=== PATIENT | female | born 1980 | race Caucasian/White ===

== ENCOUNTER 2017-11-22 15:23 | Emergency (ER) | payer BC ==
[2017-11-22] MEDS ORDERED: Lorazepam 2 MG/ML VIAL ONE ×2 (15:55→16:11)
[2017-11-22] MEDS ORDERED: diphenhydrAMINE 25 MG CAP ONE (15:55)
[2017-11-22 16:08] LABS: #Basophils 0.1 thou/uL (0.0-0.2); #Eosinphils 0.1 thou/uL (0.0-0.7); #Lymphocytes 2.2 thou/uL (1.20-3.40); #Monocytes 0.4 thou/uL (0.11-0.59); #Neutrophils 3.4 thou/uL (1.40-6.50); %Basophils 1.5 % (0.0-1.0); %Lymphocytes 35.8 % (21.0-51.0); %Monocytes 7.1 % (0.0-10.0); %Neutrophils 54.6 % (42.0-75.0); Hemoglobin 15.2 g/dL (12.0-16.0); Mean Corpuscular HGB CONC 34.5 g/dL (32.0-36.0); Mean Corpuscular Hemoglobin 35.1 pg (27.0-31.0); Mean Platelet Volume 7.2 fL (7.4-10.4); Platelet Count 286 thou/uL (130-400); RBC Distribution Width 11.2 % (11.5-14.5); Red Blood Cell (RBC) Count 4.32 mill/uL (4.20-5.40); White Blood Cell (WBC) Count 6.1 thou/uL (4.8-10.8)
[2017-11-22 16:27] LABS: ALT (SGPT) 78 U/L (8-55); AST (SGOT) 107 U/L (5-34); Albumin 5.1 g/dL (3.5-5.0); Alkaline Phosphatase 78 U/L (40-150); Anion Gap 18 mmol/L (10-20); BUN (Urea Nitrogen) 10 mg/dL (7.0-18.7); Bilirubin, Total 1.5 mg/dL (0.2-1.2); Calc. Creatinine Clearance 0 mL/min (70-130); Calcium 10.4 mg/dL (7.8-10.44); Carbon Dioxide 21 mmol/L (22-29); Chloride 103 mmol/L (98-107); Estimated GFR-MDRD 70; Globulin 3.2 g/dL (2.4-3.5); Glucose 89 mg/dL (70-105); Protein, Total 8.3 g/dL (6.0-8.3); Sodium 138 mmol/L (136-145)
[2017-11-22] MEDS ORDERED: Ketorolac Tromethamine 30 MG/ML VIAL ONE (17:36)
--- NOTE | 2017-11-22 18:28 | RAD ---
PORTABLE CHEST 1 VIEW: Date: 11/22/17 Time: 1635 hours HISTORY: Cough. FINDINGS: Comparison made with exam of 11/04/14. The heart size is normal. The lungs are expanded without focal areas of consolidation, pneumothoraces , or pleural effusions. IMPRESSION: No radiographic evidence of acute cardiopulmonary process. POS: [facility]
[2017-11-22] MEDS ORDERED: hydrOXYzine 25 MG TAB ONE (19:28)
== END 2017-11-22 19:40 | disposition home or self-care (01) ==
LOC: ERS 15:23
DX: F43.0 Acute stress reaction (principal); F41.9 Anxiety disorder, unspecified; K50.90 Crohn's disease, unspecified, without complications; Z79.899 Other long term (current) drug therapy
CPT/HCPCS: 71045; 80053; 85025; 85379; 93005; 96374; 96375; J1885; J2060

== ENCOUNTER 2022-09-11 17:15 | Observation (INO) | payer BC ==
[2022-09-11] MEDS ORDERED: Morphine 10 MG/ML VIAL ONE ×3 (17:27→21:46)
[2022-09-11] MEDS ORDERED: Ondansetron PF 4 MG/2 ML Vial ONE ×2 (17:27→23:47)
[2022-09-11 17:45] LABS: #Basophils 0.1 thou/uL (0.0-0.2); #Monocytes 0.5 thou/uL (0.11-0.59); #Neutrophils 2.8 thou/uL (1.40-6.50); %Eosinophils 0.8 % (0.0-10.0); %Monocytes 9.7 % (0.0-10.0); %Neutrophils 54.3 % (42.0-75.0); Hemoglobin 15.6 g/dL (12.0-16.0); Mean Corpuscular HGB CONC 34.8 g/dL (32.0-36.0); Mean Corpuscular Hemoglobin 37.9 pg (27.0-31.0); Mean Corpuscular Volume 108.7 fl (78.0-98.0); Mean Platelet Volume 10.1 fL (7.4-10.4); Platelet Count 210 10x3/uL (130-400); RBC Distribution Width 11.8 % (11.5-14.5); Red Blood Cell (RBC) Count 4.12 mill/uL (4.20-5.40); White Blood Cell (WBC) Count 5.1 10x3/uL (4.8-10.8)
[2022-09-11 18:12] LABS: CRP (Inflammatory) Less than 0.50 mg/dL (= or < 0.5); Lipase 44 U/L (8-78)
[2022-09-11 18:16] LABS: ALT (SGPT) 60 U/L (8-55); AST (SGOT) 72 U/L (5-34); Alkaline Phosphatase 151 U/L (40-110); Anion Gap 17 mmol/L (10-20); BUN (Urea Nitrogen) 7 mg/dL (7.0-18.7); Bilirubin, Total 1.6 mg/dL (0.2-1.2); Calc. Creatinine Clearance 0 mL/min (70-130); Calcium 9.3 mg/dL (7.8-10.44); Carbon Dioxide 21 mmol/L (22-29); Chloride 102 mmol/L (98-107); Estimated GFR 56; Globulin 3.6 g/dL (2.4-3.5); Glucose 114 mg/dL (70-105); Protein, Total 7.6 g/dL (6.0-8.3); Sodium 137 mmol/L (136-145)
[2022-09-11] MEDS ORDERED: Vancomycin 1 GM/200 ML (FROZEN) BAG ONE (19:50)
[2022-09-11] MEDS ORDERED: Promethazine HCl 12.5 MG in Sodium Chloride 0.9% 50 ML IVPB SCH (20:15)
[2022-09-11 21:28] LABS: Lactic Acid 2.2 mmol/L (0.5-2.2)
[2022-09-11] MEDS ORDERED: ALPRAZolam 0.25 MG TAB ONE (23:45)
[2022-09-11] MEDS ORDERED: Piperacillin/Tazobactam 4.5 GM VIAL ONE (23:45)
[2022-09-12] MEDS ORDERED: Metoclopramide HCl 10 MG/2 ML VIAL ONE (00:32)
[2022-09-12] MEDS ORDERED: Ondansetron ODT 4 MG TAB PO PRN (01:25)
[2022-09-12] MEDS ORDERED: Calcium Carbonate 500 MG ChewTAB PO PRN (01:25)
[2022-09-12] MEDS ORDERED: Acetaminophen 325 MG TAB PO PRN (01:25)
[2022-09-12] MEDS ORDERED: Ondansetron PF 4 MG/2 ML Vial IVP PRN (01:25)
[2022-09-12] MEDS ORDERED: Electrolyte Replacement Protocol 1 EACH FS SCH (01:26)
[2022-09-12] MEDS ORDERED: Potassium Chloride 20 MEQ TAB PO SCH (01:45)
[2022-09-12] MEDS: Ketorolac Tromethamine 30 MG/ML VIAL IVP SCH ×2 (02:44→10:42)
[2022-09-12 03:30] VITALS: BMI 30.9
[2022-09-12 05:55] LABS: Phosphorus 3.8 mg/dL (2.3-4.7)
[2022-09-12 05:57] LABS: ALT (SGPT) 43 U/L (8-55); AST (SGOT) 46 U/L (5-34); Albumin 3.3 g/dL (3.5-5.0); Alkaline Phosphatase 110 U/L (40-110); Anion Gap 14 mmol/L (10-20); BUN (Urea Nitrogen) 6 mg/dL (7.0-18.7); Bilirubin, Total 1.2 mg/dL (0.2-1.2); Calc. Creatinine Clearance 102 mL/min (70-130); Calcium 8.2 mg/dL (7.8-10.44); Carbon Dioxide 21 mmol/L (22-29); Chloride 107 mmol/L (98-107); Estimated GFR 76; Globulin 2.8 g/dL (2.4-3.5); Glucose 100 mg/dL (70-105); Magnesium 1.6 mg/dL (1.6-2.6); Potassium 3.3 mmol/L (3.5-5.1); Protein, Total 6.1 g/dL (6.0-8.3); Sodium 139 mmol/L (136-145)
[2022-09-12 07:02] LABS: Mean Corpuscular HGB CONC 32.7 g/dL (32.0-36.0); Mean Corpuscular Hemoglobin 37.9 pg (27.0-31.0); Platelet Count 141 10x3/uL (130-400); Red Blood Cell (RBC) Count 3.27 mill/uL (4.20-5.40); White Blood Cell (WBC) Count 1.2 10x3/uL (4.8-10.8)
[2022-09-12 07:15] LABS: Delete Auto Diff?? YES; Manual Diff?? YES
[2022-09-12 07:45] LABS: Anisocytosis SLIGHT = 6-15 cells HPF (0-5); Band 2 % (5-11); CellaVision Operator ID LAB.CLH1; Eosinophils 2 % (0-10); Lymphocytes 19 % (21-51); Macrocytosis SLIGHT = 6-15 cells HPF (0-5); Monocytes 5 % (0-10); Neutrophil 73 % (42-75); Platelet Adequacy Comment Platelets Normal; Polychromasia SLIGHT = 2-3 cells HPF (0-2); Total Cell Count 102
[2022-09-12 07:49] LABS: Hemoglobin 12.4 g/dL (12.0-16.0); Mean Corpuscular Volume 115.9 fl (78.0-98.0)
[2022-09-12] MEDS ORDERED: Magnesium 2 GM/50 ML(in water) 2 GM in Premix Bag 1 BAG IVPB SCH (08:00)
[2022-09-12] MEDS: Famotidine/PF 20 mg/2ml Vial SLOW IVP SCH ×2 (08:14→20:42)
[2022-09-12] MEDS: Famotidine 20 MG TAB PO SCH ×2 (08:21→20:55)
[2022-09-12] MEDS: Potassium Chloride 20 MEQ in Premix Bag 1 BAG IVPB SCH ×2 (08:25→10:43)
[2022-09-12] MEDS ORDERED: Promethazine 25 MG TAB PO PRN (10:53)
[2022-09-12] MEDS: Promethazine HCl 12.5 MG in Sodium Chloride 0.9% 50 ML IVPB PRN ×3 (12:11→23:46)
[2022-09-12] MEDS: Morphine 4 MG/ML VIAL SLOW IVP PRN ×3 (13:43→23:44)
[2022-09-12] MEDS ORDERED: Temazepam 15 MG CAP PO PRN (19:56)
[2022-09-12] MEDS: ALPRAZolam 1 MG TAB PO PRN (21:44)
[2022-09-13] MEDS: Morphine 4 MG/ML VIAL SLOW IVP PRN (04:02)
[2022-09-13 07:13] LABS: #Eosinphils 0.2 thou/uL (0.0-0.7); #Monocytes 0.7 thou/uL (0.11-0.59); #Neutrophils 1.9 thou/uL (1.40-6.50); %Basophils 0.6 % (0.0-1.0); %Eosinophils 5.2 % (0.0-10.0); %Lymphocytes 39.6 % (21.0-51.0); %Monocytes 14.4 % (0.0-10.0); Hemoglobin 11.4 g/dL (12.0-16.0); Mean Corpuscular HGB CONC 33.5 g/dL (32.0-36.0); Mean Corpuscular Hemoglobin 38.4 pg (27.0-31.0); Mean Corpuscular Volume 114.5 fl (78.0-98.0); Mean Platelet Volume 10.4 fL (7.4-10.4); Platelet Count 147 10x3/uL (130-400); RBC Distribution Width 11.9 % (11.5-14.5); Red Blood Cell (RBC) Count 2.97 mill/uL (4.20-5.40); White Blood Cell (WBC) Count 4.7 10x3/uL (4.8-10.8)
[2022-09-13 07:33] LABS: ALT (SGPT) 35 U/L (8-55); AST (SGOT) 44 U/L (5-34); Albumin 2.9 g/dL (3.5-5.0); Alkaline Phosphatase 96 U/L (40-110); Anion Gap 13 mmol/L (10-20); BUN (Urea Nitrogen) 8 mg/dL (7.0-18.7); Bilirubin, Total 0.8 mg/dL (0.2-1.2); Calc. Creatinine Clearance 116 mL/min (70-130); Carbon Dioxide 22 mmol/L (22-29); Chloride 106 mmol/L (98-107); Estimated GFR 89; Globulin 2.7 g/dL (2.4-3.5); Glucose 80 mg/dL (70-105); Potassium 3.7 mmol/L (3.5-5.1); Protein, Total 5.6 g/dL (6.0-8.3); Sodium 137 mmol/L (136-145)
[2022-09-13] MEDS: Famotidine/PF 20 mg/2ml Vial SLOW IVP SCH (08:00)
[2022-09-13] MEDS: Famotidine 20 MG TAB PO SCH (08:00)
[2022-09-13] MEDS: ALPRAZolam 1 MG TAB PO PRN (09:00)
[2022-09-13 09:23] LABS: CellaVision Operator ID LAB.GE; Macrocytosis MODERATE=16-30 cells HPF (0-5); Platelet Adequacy Comment Platelets Normal; Polychromasia SLIGHT = 2-3 cells HPF (0-2)
[2022-09-13] MEDS ORDERED: Lorazepam 2 MG/ML VIAL SLOW IVP SCH (09:30)
[2022-09-13] MEDS ORDERED: LevoFLOXacin 500 mg/D5W 500 MG in Premix Bag 1 BAG IVPB SCH (10:00)
[2022-09-13] MEDS ORDERED: Scopolamine 1.5 mg/72 hour Patch ONE (10:54)
[2022-09-13] MEDS ORDERED: LevoFLOXacin 500 mg/D5W 100 ML BAG ONE (10:54)
[2022-09-13] MEDS ORDERED: Ketorolac Tromethamine 30 MG/ML VIAL ONE (10:54)
[2022-09-13] MEDS ORDERED: Midazolam HCl 2 mg/2 ml Vial ONE ×3 (10:55→11:09)
[2022-09-13] MEDS ORDERED: HYDROmorphone 0.5 MG/0.5 ML SYRINGE ONE (11:00)
[2022-09-13] MEDS ORDERED: fentaNYL 50 mcg/mL 1 mL Vial ONE ×2 (11:00→12:27)
[2022-09-13] MEDS ORDERED: SUGAMMADEX SODIUM 200 MG/2 ML VIAL ONE (11:01)
[2022-09-13] MEDS ORDERED: Bupivacaine 0.25% HCL 30 ML VIAL ONE (11:04)
[2022-09-13] MEDS ORDERED: EPINEPHrine 1 MG/ML AMP ONE (11:04)
[2022-09-13] MEDS ORDERED: Acetaminophen 500 MG TAB PO PRN (11:20)
[2022-09-13] MEDS ORDERED: Ibuprofen 600 MG TAB PO PRN (11:20)
[2022-09-13] MEDS ORDERED: traMADol HCl 50 MG TAB PO PRN (11:20)
[2022-09-13] MEDS ORDERED: NEOSTIGMINE 3 MG/3 ML SYR 3 MG/3 ML SYRINGE ONE (11:22)
[2022-09-13] MEDS ORDERED: PROPOFOL 200 MG/20 ML VIAL ONE (11:22)
[2022-09-13] MEDS ORDERED: Rocuronium Bromide 10 MG/ML (10ML VIAL) ONE (11:22)
[2022-09-13] MEDS ORDERED: Esmolol 100 MG/10 ML VIAL ONE (11:22)
[2022-09-13] MEDS ORDERED: Dexamethasone 20 MG/5 ML VIAL ONE (11:22)
[2022-09-13] MEDS ORDERED: Lidocaine 1% PF 5 ML VIAL ONE (11:22)
[2022-09-13] MEDS ORDERED: Glycopyrrolate 0.2 MG/ML 5 ML SYRINGE ONE (11:22)
[2022-09-13] MEDS ORDERED: Succinylcholine 200 MG/10 ml SYRINGE FS ONE (11:22)
[2022-09-13] MEDS ORDERED: Ondansetron PF 4 MG/2 ML Vial ONE (11:22)
[2022-09-13] MEDS ORDERED: Acetaminophen 500 MG TAB PO SCH (11:30)
[2022-09-13] MEDS ORDERED: Dexmedetomidine 200 MCG/2 ML VIAL ONE (11:48)
[2022-09-13] MEDS ORDERED: HYDROmorphone 2 MG/ML VIAL SLOW IVP PRN (12:23)
[2022-09-13] MEDS ORDERED: Morphine Sulfate 2 MG/ML SYRINGE SLOW IVP PRN (12:23)
[2022-09-13] MEDS ORDERED: Promethazine HCl 25 MG/ML VIAL IM PRN (12:23)
[2022-09-13] MEDS ORDERED: Ondansetron HCl/PF 4 MG/2 ML Vial IVP PRN (12:23)
[2022-09-13] MEDS ORDERED: Meperidine HCl/PF 25 MG/ML VIAL SLOW IVP PRN (12:23)
[2022-09-13] MEDS: Promethazine HCl 12.5 MG in Sodium Chloride 0.9% 50 ML IVPB PRN (14:08)
[2022-09-13] MEDS ORDERED: Morphine 2 MG/ML VIAL SLOW IVP SCH (14:30)
[2022-09-13 14:56] VITALS: BP 106/78; TEMP 97.6
== END 2022-09-13 18:38 | disposition home or self-care (01) ==
LOC: ERS 17:15 → SURG A 09-12 00:02
PROVIDERS: ADMIT Student in an Organized Health Care Education/Training Program; ATTEND Internal Medicine
PROC: 0FT44ZZ Resection of Gallbladder, Percutaneous Endoscopic Approach (ICD-10-PCS; principal; 2022-09-13)
DX: K80.10 Calculus of gallbladder with chronic cholecystitis without obstruction (principal); F41.9 Anxiety disorder, unspecified; I10 Essential (primary) hypertension; K21.9 Gastro-esophageal reflux disease without esophagitis; E87.6 Hypokalemia; N17.9 Acute kidney failure, unspecified; E66.9 Obesity, unspecified; Z68.31 Body mass index [BMI] 31.0-31.9, adult; Z79.899 Other long term (current) drug therapy; Z90.89 Acquired absence of other organs; Z90.710 Acquired absence of both cervix and uterus; Z88.2 Allergy status to sulfonamides
CPT/HCPCS: 36415; 71275; 74177; 76705; 78226; 80053; 83605; 83690; 83735; 84100; 85025; 86140; 87040; 88304; 93005; 96366; 96367; 96368; 96375; 96376; A9537; C1889; G0378; J0171; J1100; J1170; J1885; J1956; J2250; J2270; J2272; J2405; J2543; J2550; J2704; J2765; J3010; J3370-JW; J3475; J3480; S0020; S0028